=== PATIENT | female | born 1965 | race Caucasian/White ===

== ENCOUNTER 2018-10-28 11:59 | Emergency (ER) | payer OTHER ==
[~2018-10-28] VITALS: Ht 165.1 cm; Wt 74.8 kg
[2018-10-28] MEDS ORDERED: SLEEP AID25 M2 (12:28)
== END 2018-10-28 13:49 | disposition home or self-care (01) ==
LOC: ER 11:59
DX: J11.1 Influenza due to unidentified influenza virus with other respiratory manifestations (principal)

== ENCOUNTER 2018-11-19 11:48 | Outpatient (CLI) | payer OTHER ==
[~2018-11-19 11:48] MED LIST: SLEEP AID25 M2
== END 2018-11-19 11:52 | disposition home or self-care (01) ==
LOC: MAMO-SONO 11:48
DX: N60.01 Solitary cyst of right breast (principal); N60.02 Solitary cyst of left breast; Z12.31 Encounter for screening mammogram for malignant neoplasm of breast

== ENCOUNTER → 2023-05-30 10:31 | Outpatient (CLI) | payer OTHER ==
[2023-05-30 11:30] LABS: HEMATOCRIT 38.6 % (36.0-45.00); HEMOGLOBIN 12.8 g/dL (12.0-15.00); MEAN CELL VOLUME 87.7 fL (80.00-100.00); MEAN CORPUSCULAR HEMOGLOBIN 29.2 pg (27.00-32.0); MEAN CORPUSCULAR HGB CONC 33.3 g/dl (32.0-36.0); PLATELET COUNT 223 K/uL (150-450)
[2023-05-30 11:36] LABS: URINE APPEARANCE Clear; URINE BILIRRUBIN Negative (NEGATIVE); URINE BLOOD Negative; URINE COLOR Yellow; URINE GLUCOSE Negative (NEGATIVE); URINE LEUKOCYTE Moderate; URINE NITRATE Negative; URINE PROTEIN Negative (NEGATIVE); URINE UROBILINOGEN 0.2 E.U./dl
[2023-05-30 11:37] LABS: URINE BACTERIA 255.7 uL (0.0-1933); URINE EPITHELIAL CELLS 20.9 uL (0.0-38.8); URINE RBC 3.5 uL (0.0-20.8); URINE WBC 19.9 uL (0.0-23.2)
[2023-05-30 12:10] LABS: ALBUMIN 3.4 gm/dL (3.4-5.0); BILIRUBIN TOTAL 0.21 mg/dL (0.3-1.2); CALCIUM 9.4 mg/dL (8.5-10.1); CHOL HDL RATIO 3.6 (0-5.0); CREATININE SERUM 0.72 mg/dL (0.55-1.02); GFR 82.62; GLOBULINA 3.9 G/DL (2.4-3.5); POTASSIUM 4.5 mEq/L (3.5-5.1); TOTAL PROTEIN 7.3 gm/dL (6.4-8.2)
[2023-05-30 12:12] LABS: TSH 0.337 uIU/mL (0.358-3.74)
== END | disposition home or self-care (01) ==
LOC: LAB 10:31
PROVIDERS: ATTEND Specialist
DX: R94.5 Abnormal results of liver function studies (principal); E03.8 Other specified hypothyroidism; E11.9 Type 2 diabetes mellitus without complications; E55.9 Vitamin D deficiency, unspecified; R97.0 Elevated carcinoembryonic antigen [CEA]; E78.49 Other hyperlipidemia; Z88.0 Allergy status to penicillin

== ENCOUNTER → 2023-05-30 | Outpatient (CLI) | payer OTHER | END | disposition home or self-care (01) | LOC: MAMO-SONO 11:32 | PROVIDERS: ATTEND Specialist | DX: N64.9 Disorder of breast, unspecified (principal); N63.0 Unspecified lump in unspecified breast; Z12.31 Encounter for screening mammogram for malignant neoplasm of breast ==

== ENCOUNTER 2024-01-27 17:26 | Emergency (ER) | payer OTHER ==
[~2024-01-27] VITALS: Ht 162.6 cm; Wt 72.6 kg
[2024-01-27] MEDS ORDERED: KETOROLAC TROMETHAMINE 30 MG VIAL IM ONE (19:15)
[2024-01-27] MEDS ORDERED: ORPHENADRINE CITRATE 30 MG/ML AMPUL IM ONE (19:15)
== END 2024-01-27 20:27 | disposition home or self-care (01) ==
LOC: ER 17:27
DX: R25.2 Cramp and spasm (principal); Z88.0 Allergy status to penicillin

== ENCOUNTER 2024-07-20 09:17 | Outpatient (CLI) | payer OTHER ==
[2024-07-20 09:54] LABS: HEMATOCRIT 40.3 % (36.0-45.00); HEMOGLOBIN 13.8 g/dL (12.0-15.00); MEAN CELL VOLUME 87.4 fL (80.00-100.00); MEAN CORPUSCULAR HEMOGLOBIN 30.1 pg (27.00-32.0); MEAN CORPUSCULAR HGB CONC 34.4 g/dl (32.0-36.0); PLATELET COUNT 195 K/uL (150-450); RED CELL DISTRIBUTION WIDTH 14.3 % (11.5-14.5)
[2024-07-20 10:13] LABS: PH,URINE 6.5 (5.0-8.0); URINE APPEARANCE Cloudy; URINE BILIRRUBIN Negative (NEGATIVE); URINE BLOOD Negative; URINE COLOR Yellow; URINE GLUCOSE Negative (NEGATIVE); URINE KETONE Negative (NEGATIVE); URINE LEUKOCYTE Large; URINE NITRATE Negative; URINE PROTEIN Negative (NEGATIVE); URINE UROBILINOGEN 0.2 E.U./dl
[2024-07-20 10:15] LABS: URINE BACTERIA 1176.1 uL (0.0-1933); URINE EPITHELIAL CELLS 39.5 uL (0.0-38.8); URINE RBC 8.9 uL (0.0-20.8)
[2024-07-20 10:20] LABS: URINE CAST 1.32 uL (0.0-1.40)
[2024-07-20 11:08] LABS: ALBUMIN 3.4 gm/dL (3.4-5.0); BILIRUBIN TOTAL 0.4 mg/dL (0.3-1.2); CALCIUM 8.9 mg/dL (8.5-10.1); CHOL HDL RATIO 3.4 (0-5.0); CREATININE SERUM 0.62 mg/dL (0.55-1.02); GFR 97.86; GLOBULINA 3.4 G/DL (2.4-3.5); POTASSIUM 4.42 mEq/L (3.5-5.1); TOTAL PROTEIN 6.8 gm/dL (6.4-8.2)
[2024-07-20 12:20] LABS: TSH 1.55 uIU/mL (0.358-3.74)
== END 2024-07-20 09:28 | disposition home or self-care (01) ==
LOC: LAB 09:17
PROVIDERS: ATTEND Specialist
DX: N39.0 Urinary tract infection, site not specified (principal); D51.9 Vitamin B12 deficiency anemia, unspecified; R94.5 Abnormal results of liver function studies; E78.49 Other hyperlipidemia; E03.8 Other specified hypothyroidism; E11.9 Type 2 diabetes mellitus without complications

== ENCOUNTER 2024-07-20 12:11 | Outpatient (CLI) | payer OTHER | END 2024-07-20 12:15 | disposition home or self-care (01) | LOC: MAMO-SONO 12:11 | PROVIDERS: ATTEND Specialist | DX: N64.2 Atrophy of breast (principal); N60.12 Diffuse cystic mastopathy of left breast; N63 Unspecified lump in breast; Z12.31 Encounter for screening mammogram for malignant neoplasm of breast ==

== ENCOUNTER 2024-09-27 13:41 | Emergency (ER) | payer OTHER ==
[~2024-09-27] VITALS: Ht 162.6 cm; Wt 70.3 kg
[2024-09-27] MEDS ORDERED: ORPHENADRINE CITRATE 100 MG TABLET PO ONE (15:45)
[2024-09-27] MEDS ORDERED: KETOROLAC TROMETHAMINE 30 MG VIAL IM ONE (15:45)
[2024-09-27] MEDS ORDERED: TYLENOL ARTHRI650 MG PO (15:54)
[2024-09-27] MEDS ORDERED: NORFLEX100MG PO (15:54)
== END 2024-09-27 16:21 | disposition home or self-care (01) ==
LOC: ER 13:43
DX: M54.50 Low back pain, unspecified (principal); Z88.0 Allergy status to penicillin

== ENCOUNTER 2025-06-09 14:19 | Outpatient (CLI) | payer OTHER ==
[~2025-06-09 14:19] MED LIST changes: +NORFLEX100MG PO; +TYLENOL ARTHRI650 MG PO
== END 2025-06-09 14:28 | disposition home or self-care (01) ==
LOC: MAMO-SONO 14:19
DX: N63 Unspecified lump in breast (principal); N64.9 Disorder of breast, unspecified